=== PATIENT | female | born 1950 | race African-American/Black ===

== ENCOUNTER 2023-06-14 07:23 | Day surgery (SDC) | payer MEDICARE, OTHER ==
[2023-06-13 14:45] LABS: Potassium 4.8 mEq/L (3.5-5.1)
[2023-06-14] MEDS: Ringers Lactate 1,000 ML IV ONE ×2 (08:00→09:01)
[2023-06-14] MEDS ORDERED: propofoL 200 MG/20 ML VIAL IV ONE (09:13)
[2023-06-14] MEDS ORDERED: LIDOCAINE 1% MPF 5 ML VIAL ONE (09:13)
[2023-06-14] MEDS ORDERED: GLYCOPYRROLATE 0.2 MG/ML SYR ONE (09:14)
[2023-06-14 10:13] VITALS: TEMP 97.1; O2SAT 97
[2023-06-14 10:20] VITALS: BP 120/76
--- NOTE | 2023-06-14 13:58 | EKG ---
Test Date: 2023-06-13 Test Time: 14:11:12 [employer]oving [employer] Checker: BLANCA MEASUREMENT RESULTS: Intervals: Rate: 67 SD: 142 QRSD: 102 QT: 366 QTc: 386 [place]: P: 53 SD: 142 QRS: 0 T: -44 INTERPRETIVE STATEMENTS: Normal sinus rhythm with sinus arrhythmia Minimal voltage criteria for LVH, may be normal variant ST & T wave abnormality, consider inferior ischemia Abnormal ECG Compared to ECG 06/02/2008 15:28:24 ST (T wave) deviation now present Possible ischemia now present Electronically Signed On 06-14-23 13:56:18 CDT by Félix Miller
== END 2023-06-14 10:27 | disposition home or self-care (01) ==
LOC: OR 07:23
PROVIDERS: ATTEND Surgery
PROC: 0DBN8ZX Excision of Sigmoid Colon, Via Natural or Artificial Opening Endoscopic, Diagnostic (ICD-10-PCS; 2023-06-14)
PROC: 0DBK8ZX Excision of Ascending Colon, Via Natural or Artificial Opening Endoscopic, Diagnostic (ICD-10-PCS; principal; 2023-06-14 08:30)
DX: Z12.11 Encounter for screening for malignant neoplasm of colon (principal); D12.5 Benign neoplasm of sigmoid colon; K57.30 Diverticulosis of large intestine without perforation or abscess without bleeding; K64.8 Other hemorrhoids; I10 Essential (primary) hypertension; I50.9 Heart failure, unspecified
CPT/HCPCS: 36415; 80048; 88305; 93005; J2001; J2704; J7120